=== PATIENT | female | born 1955 | race African-American/Black ===

== ENCOUNTER → 2019-08-06 09:38 | Outpatient (CLI) | payer OTHER, SELFPAY ==
--- NOTE | ~2019-08-06 | MR_ITS ---
EXAMINATION: MR ankle RT wo con DATE: 08/06/2019 10:28 INDICATION: Nondisplaced fracture of the right talar dome TECHNIQUE: Magnetic resonance imaging (MRI) of the right ankle was performed without intravenous cont rast. Sequences included sagittal, coronal, and axial proton-density weighted fast spin echo without and with fat saturation. COMPARISON: None. FINDINGS: Medial ankle ligaments: Deep and superficial deltoid ligaments as well as the spring ligament are normal. Lateral ankle ligaments: The anterior and posterior inferior tibiofibular ligaments are normal. The anterior talofibular, calc aneofibular and posterior talofibular ligaments are normal. Tendons: Fusiform thickening of the distal Achilles tendon consistent with mild tendinosis. Foci of susceptibi lity artifact along the distal tendon and anchoring screws at the posterior tuberosity of the calcane us consistent with prior Achilles tendon repair versus repositioning. Correlate with surgical history . Small amount of fluid along the peroneus longus tendon sheath at the level of the distal fibula. Th e peroneus longus and brevis tendons are normal. The tibialis anterior and extensor hallucis longus a nd extensor digitorum longus tendons are normal. The tibialis posterior, flexor digitorum longus and flexor hallucis longus tendons are normal. Plantar fascia: Moderate-sized plantar calcaneal spurs at the calcaneal insertion of the otherwise normal plantar apo neurosis. 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 There is marrow edema at t he anterior process of the calcaneus without a definitive fracture line and this could be related to osteoarthritis with moderate nonuniform joint space narrowing at the anterior facet of the subtalar j oint as well as at the cephalad aspect of the calcaneocuboid joint. No fracture or pathologic marrow replacing process. Fluid: Physiologic amount fluid in the joint spaces. No other abnormal fluid collections. IMPRESSION: 1. Focal marrow edema at the anterior process of the calcaneus without evident fracture line. There i s mild to moderate osteoarthritis at the anterior facet of the subtalar joint and at the calcaneocubo id joint suggesting edema is reactive/degenerative in etiology. 2. Additional mild to moderate polyarticular osteoarthritis at the tarsal metatarsal joints. 3. Mild peroneal tenosynovitis with normal-appearing tendons. 4. Postoperative change at the distal Achilles tendon. Reviewed, dictated and finalized at location A. IMPRESSION: 1. Focal marrow edema at the anterior process of the calcaneus without evident fracture line. There is mild to moderate osteoarthritis at the anterior facet o f the subtalar joint and at the calcaneocuboid joint suggesting edema is reacti ve/degenerative in etiology. 2. Additional mild to moderate polyarticular osteoarthritis at the tarsal metat arsal joints. 3. Mild peroneal tenosynovitis with normal-appearing tendons. 4. Postoperative change at the distal Achilles tendon.
== END ==
PROVIDERS: PCP Internal Medicine; Visit Provider Podiatrist Foot & Ankle Surgery
DX: S92.144A Nondisplaced dome fracture of right talus, initial encounter for closed fracture (principal); X58.XXXA Exposure to other specified factors, initial encounter; M19.071 Primary osteoarthritis, right ankle and foot
CPT/HCPCS: 73721